=== PATIENT | male | born 1955 | race Caucasian/White ===

== ENCOUNTER → 2018-03-29 | Outpatient (CLI) | payer MEDICAID ==
[~2018-03-29] MED LIST: OMNIPAQUE 350 MG/ML, 150 ML BOTTLE ONE
== END | disposition home or self-care (01) ==
LOC: CFH 10:52
PROVIDERS: ATTEND Internal Medicine Cardiovascular Disease
DX: I71.2 Thoracic aortic aneurysm, without rupture (principal); I48.0 Paroxysmal atrial fibrillation
CPT/HCPCS: 75572; 82565; Q9967

== ENCOUNTER 2018-05-03 10:56 | Observation (INO) | payer MEDICAID ==
[~2018-05-03] VITALS: Ht 177.8 cm; Wt 84.6 kg
[~2018-05-03 10:56] MED LIST changes: +GLYCOPYRROLATE 0.2MG/1ML, 5ML ONE; +NEOSTIGMINE 1 MG/ML, 10ML ONE; -OMNIPAQUE 350 MG/ML, 150 ML BOTTLE ONE; +ONDANSETRON 2MG/ML, 2ML ONE
[2018-05-03] MEDS ORDERED: SODIUM CHLORIDE 0.9% 1,000 ML IV SCH ×2 (11:23→11:30)
[2018-05-03 11:26] VITALS: BP 132/81
[2018-05-03] MEDS ORDERED: APIX5TAB PO (11:46)
[2018-05-03] MEDS ORDERED: DILT360C10 PO (11:46)
[2018-05-03] MEDS ORDERED: TRAZ-136 PO (11:46)
[2018-05-03 11:51] LABS: BASOPHILS # (AUTO) 0.02 x10^3/uL (0-0.1); BASOPHILS % (AUTO) 0 % (0-1); EOSINOPHILS # (AUTO) 0.25 x10^3/uL (0-0.4); EOSINOPHILS % (AUTO) 4 % (1-7); LYMPHOCYTES # (AUTO) 0.94 x10^3/uL (1-3.4); LYMPHOCYTES % (AUTO) 17 % (22-44); MD NO; MEAN CORPUSCULAR HEMOGLOBIN 32.4 pg (27.5-34.5); MEAN CORPUSCULAR HGB CONC 34.5 g/dL (33.2-36.2); MEAN CORPUSCULAR VOLUME 93.9 fL (81-97); MEAN PLATELET VOLUME 8.5 fL (7.4-10.4); MONOCYTES % (AUTO) 9 % (2-9); NEUTROPHILS % (AUTO) 70 % (42-75); PLATELET COUNT 218 x10^3/uL (130-400); RED BLOOD COUNT 4.01 x10^6/uL (4.38-5.82)
[2018-05-03 12:01] LABS: INTERNATIONAL NORMALIZED RATIO 1.05 (0.93-1.1); PROTHROMBIN TIME 10.8 Seconds (9.6-11.5)
[2018-05-03 12:04] LABS: CHLORIDE 108 mmol/L (98-107)
[2018-05-03 12:11] LABS: ANION GAP 6 mmol/L (5-15); CALCIUM 8.5 mg/dL (8.5-10.1); CREATININE 0.88 mg/dL (0.7-1.3)
[2018-05-03] MEDS ORDERED: HEPARIN 1,000 UNITS/ML, 10ML ONE ×4 (12:53→14:00)
[2018-05-03] MEDS ORDERED: MIDAZOLAM 1 MG/ML, 2ML ONE (13:04)
[2018-05-03] MEDS ORDERED: CEFAZOLIN 1,000 MG ONE (13:09)
[2018-05-03] MEDS ORDERED: FENTANYL PF 250 MCG/5ML ONE (13:36)
[2018-05-03] MEDS ORDERED: EPHEDRINE 50 MG/ML, 1ML ONE (13:36)
[2018-05-03] MEDS ORDERED: LIDOCAINE-MPF 1%, 5ML ONE (13:37)
[2018-05-03] MEDS ORDERED: ROCURONIUM 10MG/ML,5ML ONE (14:00)
[2018-05-03] MEDS ORDERED: DEXAMETHASONE 4 MG/ML, 1ML ONE (14:00)
[2018-05-03] MEDS ORDERED: SUCCINYLCHOLINE 20 MG/ML, 10ML ONE (14:00)
[2018-05-03] MEDS ORDERED: PROPOFOL 10 MG/ML, 20ML ONE (14:00)
[2018-05-03] MEDS ORDERED: PROTAMINE SULFATE 10 MG/ML, 5ML ONE (16:25)
[2018-05-03] MEDS ORDERED: TRAZODONE 50MG TABLET PO PRN (17:00)
[2018-05-03] MEDS ORDERED: LORazepam 2 MG/ML, 1ML IVPush PRN (17:30)
[2018-05-03] MEDS ORDERED: EPHEDRINE 50 MG/ML, 1ML IVPush PRN (17:30)
[2018-05-03] MEDS ORDERED: MEPERIDINE/PF 25MG/0.5ML IVPush PRN (17:30)
[2018-05-03] MEDS ORDERED: ACETAMINOPHEN 325 MG TABLET PO PRN ×2 (17:30→21:30)
[2018-05-03] MEDS ORDERED: ONDANSETRON 2MG/ML, 2ML IV PRN ×2 (17:30→21:30)
[2018-05-03] MEDS ORDERED: LABETALOL 5MG/ML, 20ML IV PRN (17:30)
[2018-05-03] MEDS ORDERED: PROMETHAZINE 12.5 MG SUPP PR PRN (17:30)
[2018-05-03] MEDS ORDERED: HYDROmorphone 1 MG/ML, 1ML IV PRN (17:30)
[2018-05-03] MEDS ORDERED: PROMETHAZINE 25 MG/ML, 1ML IV PRN (17:30)
[2018-05-03] MEDS ORDERED: ALBUTEROL SULFATE 2.5 MG/3 ML NPPB PRN (17:30)
[2018-05-03] MEDS ORDERED: MIDAZOLAM 1 MG/ML, 2ML IV PRN (17:30)
[2018-05-03] MEDS ORDERED: FENTANYL PF 100 MCG/2ML IV PRN (17:30)
[2018-05-03] MEDS ORDERED: ONDANSETRON ODT 8 MG PO PRN (17:30)
[2018-05-03] MEDS ORDERED: hydrALAzine 20 MG/ML, 1ML IV PRN (17:30)
[2018-05-03] MEDS ORDERED: MORPHINE SULFATE 4 MG/ML, 1ML IVPush PRN (17:30)
[2018-05-03] MEDS ORDERED: HALOPERIDOL 5 MG/ML IV PRN (17:30)
[2018-05-03] MEDS ORDERED: OXYcodone 5 MG/5 ML ORAL.SOL UDC PO PRN (17:30)
[2018-05-03] MEDS ORDERED: OXYcodone 5 MG/5 ML ORAL.SOL UDC ONE (18:33)
[2018-05-03 20:10] VITALS: BP 131/84
[2018-05-03] MEDS: APIXABAN 5 MG TABLET PO SCH (22:00)
[2018-05-04 00:15] VITALS: BP 124/78
[2018-05-04 07:23] VITALS: BP 112/72
[2018-05-04] MEDS ORDERED: PANTOPROZOLE 40MG TABLET PO SCH (07:30)
[2018-05-04] MEDS: COLCHICINE 0.6 MG TABLET PO SCH ×2 (08:04→08:08)
[2018-05-04] MEDS: APIXABAN 5 MG TABLET PO SCH (08:05)
[2018-05-04] MEDS ORDERED: DILTIAZEM CD 180 MG CAP.ER.24H PO SCH (09:00)
[2018-05-04] MEDS ORDERED: PANT40TA5 PO (11:27)
[2018-05-04] MEDS ORDERED: COLC0.6T37 PO (11:27)
[2018-05-04 12:13] VITALS: BP 93/56
== END 2018-05-04 15:25 | disposition home or self-care (01) ==
LOC: CACL 10:56 → 5SO 19:43 → DCLOUNGE 05-04 15:03
PROVIDERS: ADMIT Internal Medicine Cardiovascular Disease; ATTEND Internal Medicine Cardiovascular Disease
DX: I48.0 Paroxysmal atrial fibrillation (principal)
CPT/HCPCS: 36415; 80048; 85025; 85347; 85610; 85730; 93312; 93321; 93325; 93613; 93656; 93662; C1730; C1732; C1759; C1766; C1893; C1894; G0378; J0330; J0690; J1100; J1644; J2250; J2405; J2704; J2710; J2720; J3010; J3490